=== PATIENT | male | born 1975 | race Caucasian/White ===

== ENCOUNTER 2021-01-30 11:58 | Emergency (ER) | payer BC, OTHER ==
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
--- NOTE | 2021-01-30 13:10 | RAD REPORT ---
EXAM DESCRIPTION: RAD - Chest Pa And Lat (2 Views) - 01/30/2021 12:55 pm CLINICAL HISTORY: Congestion;SOB COMPARISON: No comparisons FINDINGS: Lines: None. Lungs: Scattered bilateral airspace disease, most notably at the left lung base. Pleural: No significant pleural effusions or pneumothorax. Cardiac: The heart size is within normal limits. Bones: No acute fractures. Other: IMPRESSION: Scattered bilateral airspace disease concerning for multifocal pneumonia including Covid -19.
--- NOTE | 2021-01-30 13:43 | ER ---
Nurse's Notes [facility] Name: Marlon Cardenas II Age: 45 yrs Sex: Male : 1975 Arrival Date: 01/30/2021 Time: 11:59 Bed Waiting Private MD: Diagnosis: Pneumonia due to SARS-associated coronavirus;Coronavirus infection, unspecified Presentation: 01/30 12:29 Chief complaint: Patient states: testing POSITIVE for COVID Wednesday. i have been tw2 running a fever. seems to be better today but now i have the colds sweats. real congested feeling. i just want to make sure i dont have pneumonia or anything. i am not feeling better. i got the infusion 2 days. Coronavirus screen: congestion, cough unrelated to allergies, difficulty breathing, nausea, shaking with chills, Client presents with at least one sign or symptom that may indicate coronavirus-19. Standard/surgical mask placed on the client. Provider contacted for isolation considerations. Ebola Screen: Patient denies travel to an Ebola-affected area in the 21 days before illness onset. Initial Sepsis Screen: Does the patient meet any 2 criteria? No. Patient's initial sepsis screen is negative. Does the patient have a suspected source of infection? No. Patient's initial sepsis screen is negative. Risk Assessment: Do you want to hurt yourself or someone else? Patient reports no desire to harm self or others. Note provider STAN Rolon in triage room at this time performing assessment. Onset of symptoms was January 30, 2021. 12:29 Method Of Arrival: Ambulatory tw2 12:29 Acuity: RAYO 4 tw2 Triage Assessment: 12:34 General: Appears in no apparent distress. obese, well groomed, Behavior is calm, tw2 cooperative, appropriate for age. Pain: Denies pain. EENT: Reports nasal congestion nasal discharge. Respiratory: Reports shortness of breath at rest cough that is non-productive, Onset: The symptoms/episode began/occurred few days ago, the patient has mild shortness of breath. Historical: - Allergies: 12:34 Hydrocodone-Acetaminophen; tw2 - Home Meds: 12:34 None [Active]; tw2 - PMHx: 12:34 fatty liver; tw2 - PSHx: 12:34 None; tw2 - Immunization history:: Adult Immunizations. - Social history:: Smoking status: . Screenin:35 Abuse screen: Denies threats or abuse. Nutritional screening: No deficits noted. tw2 Tuberculosis screening: No symptoms or risk factors identified. Fall Risk None identified. Assessment: 13:51 Reassessment: Patient appears in no apparent distress at this time. No changes from tw2 previously documented assessment. Patient and/or family updated on plan of care and expected duration. Pain level reassessed. Patient is alert, oriented x 3, equal unlabored respirations, skin warm/dry/pink. Cardiovascular: Rhythm is. Respiratory: Airway is patent Respiratory effort is even, unlabored, 13:51 Reassessment: provider STAN Rolon in triage room at this time going over tw2 results and discharging pt. Vital Signs: 12:33 BP 130 / 93; Pulse 88; Resp 19; Temp 97.9(TE); Pulse Ox 95% on R/A; tw2 12:33 96% sitting talking to provider at this time. tw2 ED Course: 11:59 Patient arrived in ED. as 12:33 Triage completed. tw2 12:34 Arm band placed on. tw2 12:37 Yamileth Cardenas FNP-C is PHCP. kb 12:37 Manuel Zambrano MD is Attending Physician. kb 12:54 XRAY Chest Pa And Lat (2 Views) In Process Unspecified. EDMS 13:52 No provider procedures requiring assistance completed. Patient did not have IV access tw2 during this emergency room visit. Administered Medications: No medications were administered Outcome: 13:43 Discharge ordered by . kb 13:52 Discharged to home ambulatory, with significant other. tw2 13:52 Condition: stable 13:52 Discharge instructions given to patient, Instructed on discharge instructions, follow up and referral plans. Demonstrated understanding of instructions, follow-up care. 13:52 Patient left the ED. tw2 Signatures: Dispatcher [employer] EDMS Yamileth Cardenas FNP-C FNP-Khushi Coon Tara, RN RN tw2
--- NOTE | 2021-01-30 13:44 | EDPHYS ---
Physician Documentation [facility] Name: Marlon Cardenas II Age: 45 yrs Sex: Male : 1975 Arrival Date: 01/30/2021 Time: 11:59 Bed Waiting Private MD: ED Physician Manuel Zambrano HPI: 01/30 17:21 This 45 yrs old Male presents to ER via Ambulatory with complaints of Cough, kb Shortness Of Breath - covid+. 17:21 The patient or guardian reports cough, that is intermittent, described as mild, flu kb symptoms, low-grade fever, myalgias. Onset: The symptoms/episode began/occurred 8 day(s) ago. Severity of symptoms: At their worst the symptoms were moderate, in the emergency department the symptoms are unchanged. Modifying factors: The symptoms are alleviated by nothing, the symptoms are aggravated by nothing. Associated signs and symptoms: Pertinent positives: fever. The patient has not experienced similar symptoms in the past. The patient has not recently seen a physician. Pt reports he tested positive for Covid on Wednesday. Reports fever, cold sweats, cough, congestion.. Historical: - Allergies: 12:34 Hydrocodone-Acetaminophen; tw2 - Home Meds: 12:34 None [Active]; tw2 - PMHx: 12:34 fatty liver; tw2 - PSHx: 12:34 None; tw2 - Immunization history:: Adult Immunizations. - Social history:: Smoking status: . ROS: 17:28 Cardiovascular: Negative for chest pain, palpitations, and edema. kb 17:28 Constitutional: Positive for chills, fever, malaise. 17:28 ENT: Positive for sinus congestion. 17:28 Respiratory: Positive for cough, Negative for dyspnea on exertion, hemoptysis, orthopnea, pleurisy, shortness of breath, sputum production, wheezing. 17:28 All other systems are negative. Exam: 17:23 Constitutional: This is a well developed, well nourished patient who is awake, alert, kb and in no acute distress. Head/Face: Normocephalic, atraumatic. ENT: Moist Mucous membranes Cardiovascular: Regular rate and rhythm with a normal S1 and S2. No gallops, murmurs, or rubs. No pulse deficits. Respiratory: Respirations even and unlabored. No increased work of breathing, no retractions or nasal flaring. Skin: Warm, dry with normal turgor. Normal color. MS/ Extremity: Pulses equal, no cyanosis. Neurovascular intact. Full, normal range of motion. Neuro: Awake and alert, GCS 15, oriented to person, place, time, and situation. Moves all extremities. Normal gait. Psych: Awake, alert, with orientation to person, place and time. Behavior, mood, and affect are within normal limits. Vital Signs: 12:33 BP 130 / 93; Pulse 88; Resp 19; Temp 97.9(TE); Pulse Ox 95% on R/A; tw2 12:33 96% sitting talking to provider at this time. tw2 MDM: 12:37 Patient medically screened. kb 17:11 Data reviewed: vital signs, nurses notes. Data interpreted: Pulse oximetry: on room air kb is 95 %. Interpretation: normal. Counseling: I had a detailed discussion with the patient and/or guardian regarding: the historical points, exam findings, and any diagnostic results supporting the discharge/admit diagnosis, radiology results, the need for outpatient follow up, a family practitioner, to return to the emergency department if symptoms worsen or persist or if there are any questions or concerns that arise at home. 01/30 12:33 Order name: XRAY Chest Pa And Lat (2 Views); Complete Time: 13:16 tw2 Administered Medications: No medications were administered Disposition: 01/31 04:45 Co-signature as Attending Physician, Manuel Zambrano MD I agree with the assessment and kdr plan of care. Disposition Summary: 01/30/21 13:43 Discharge Ordered Location: Home kb Condition: Stable kb Diagnosis - Pneumonia due to SARS-associated coronavirus kb - Coronavirus infection, unspecified kb Followup: kb - With: Emergency Department - When: As needed - Reason: Worsening of condition Followup: kb - With: Private Physician - When: 2 - 3 days - Reason: Recheck today's complaints, Continuance of care, Re-evaluation by your physician Discharge Instructions: - Discharge Summary Sheet kb - COVID-19 kb - COVID-19 Frequently Asked Questions kb - 10 Things You Can Do to Manage Your COVID-19 Symptoms at Home - [facility] kb Forms: - Medication Reconciliation Form kb - Thank You Letter kb - Antibiotic Education kb - Prescription Opioid Use kb Signatures: Dispatcher [employer] Yamileth Barrera, RETAIL ROUTE SUPERVISOR-C RETAIL ROUTE SUPERVISOR-Ckb Manuel Zambrano MD MD kdr Arcelia Mina RN RN tw2
[2021-01-30 14:01] VITALS: BP 130/93; TEMP 97.9; O2SAT 95
== END 2021-01-30 13:52 | disposition home or self-care (01) ==
LOC: ER 11:58
DX: U07.1 COVID-19 (principal); J12.82 Pneumonia due to coronavirus disease 2019; Z88.5 Allergy status to narcotic agent
CPT/HCPCS: 71046; 99283